=== PATIENT | female | born 1955 | race Caucasian/White ===

== ENCOUNTER 2017-01-08 20:34 | Emergency (ER) | payer OTHER ==
[~2017-01-08] VITALS: Ht 165.1 cm; Wt 109.1 kg
[2017-01-08] MEDS ORDERED: PRINIVIL20 MG PO (21:06)
[2017-01-08] MEDS ORDERED: TOPROL XL 50MG50 MG PO (21:06)
[2017-01-08] MEDS ORDERED: LIPITOR 40MG TA40 MG PO (21:06)
[2017-01-08] MEDS ORDERED: IMITREX 6M6 MG/0.5 M SQ (21:07)
[2017-01-08] MEDS ORDERED: MAXALT MLT10 MG/TAB PO (21:07)
[2017-01-08] MEDS ORDERED: VALIUM 10MG10 MG/TAB PO (21:07)
[2017-01-08 22:11] LABS: BASO % 0.4 % (0.0-2.0); EOS # 0.2 (0.0-0.7); EOS % 1.6 % (0-4.0); GRAN # 6.7 (1.4-6.5); GRAN % 67.8 % (42.2-75.2); HEMATOCRIT 37.9 % (37.0-47.0); HEMOGLOBIN 12.8 g/dl (12.5-16.0); LYMPH # 2.3 (1.2-3.4); LYMPH % 23.8 % (20.0-51.0); MEAN CELL VOLUME 88 fl (80.0-100.0); MEAN CORPUSCULAR HEMOGLOBIN 30 pg (27.0-31.0); MEAN CORPUSCULAR HGB CONC 34 g/dl (33.0-37.0); MONO # 0.6 (0.1-0.6); MONO % 5.7 % (1.7-9.3); PLATELET COUNT 225 K/mm3 (130-400); RED BLOOD COUNT 4.31 M/mm3 (4.10-5.30); REDCELL DISTRIBUTION WIDTH-CV 13.9 % (11.5-14.5); WHITE BLOOD COUNT 9.8 K/mm3 (4.8-10.8)
[2017-01-08 22:17] LABS: PROTHROMBIN TIME 11.2 SECONDS (9.7-12.8)
[2017-01-08 22:19] LABS: CALCIUM 9.1 mg/dL (8.4-10.2); CREATININE, serum 0.83 mg/dL (0.52-1.25); POTASSIUM 3.5 mmol/L (3.4-5.0)
[2017-01-08 22:53] VITALS: BP 156/107; PULSE 90
[2017-01-08] MEDS ORDERED: LOPRESSOR 550 MG/TAB PO ×2 (23:04→23:17)
[2017-01-08] MEDS ORDERED: CATAPRES 0.1MG0.1 MG PO ×2 (23:04→23:17)
== END 2017-01-08 23:18 | disposition home or self-care (01) ==
LOC: COL.ER 20:34
PROVIDERS: Emergency Medicine
DX: I10 Essential (primary) hypertension (principal); R04.0 Epistaxis

== ENCOUNTER → 2017-09-10 | Outpatient (CLI) | payer OTHER ==
[~2017-09-10] MED LIST: CATAPRES 0.1MG0.1 MG PO; IMITREX 6M6 MG/0.5 M SQ; LIPITOR 40MG TA40 MG PO; LOPRESSOR 550 MG/TAB PO; MAXALT MLT10 MG/TAB PO; PRINIVIL20 MG PO; TOPROL XL 50MG50 MG PO; VALIUM 10MG10 MG/TAB PO
== END ==
LOC: MHCPAIN 10:25
DX: G89.29 Other chronic pain (principal); M47.812 Spondylosis without myelopathy or radiculopathy, cervical region; R51 Headache; M54.81 Occipital neuralgia
CPT/HCPCS: G0463

== ENCOUNTER → 2018-08-27 | Outpatient (CLI) | payer OTHER | LOC: MC.RAD 09:33 | DX: Z12.31 Encounter for screening mammogram for malignant neoplasm of breast (principal); Z98.890 Other specified postprocedural states ==

== ENCOUNTER → 2019-02-25 | Outpatient (CLI) | payer OTHER | LOC: COL.RAD 10:00 | DX: K58.9 Irritable bowel syndrome, unspecified (principal); K76.0 Fatty (change of) liver, not elsewhere classified ==

== ENCOUNTER → 2019-03-14 | Outpatient (CLI) | payer OTHER | LOC: COL.RAD 09:43 | DX: K58.9 Irritable bowel syndrome, unspecified (principal) | CPT/HCPCS: A9537 ==

== ENCOUNTER → 2019-09-12 | Outpatient (CLI) | payer OTHER | LOC: MC.RAD 09:45 | DX: Z12.31 Encounter for screening mammogram for malignant neoplasm of breast (principal); Z90.13 Acquired absence of bilateral breasts and nipples ==

== ENCOUNTER → 2019-12-19 | Outpatient (CLI) | payer OTHER | LOC: COL.RAD 11:37 | DX: M25.522 Pain in left elbow (principal) ==

== ENCOUNTER 2020-04-26 08:09 | Observation (INO) | payer OTHER ==
[2020-04-26] VITALS (16 sets, daily range): BP systolic 119–166; BP diastolic 62–92; PULSE 74–89; TEMP 97.7–98.1
[~2020-04-26] VITALS: Ht 165.1 cm; Wt 100.0 kg
[2020-04-26 09:14] LABS: COLLECTION METHOD CLEAN CATCH
[2020-04-26] MEDS ORDERED: JARDIANCE25 PO (09:19)
[2020-04-26] MEDS ORDERED: CATAPRES0.2 MG PO (09:19)
[2020-04-26 09:20] LABS: BASO # 0.1 (0.0-0.2); BASO % 0.5 % (0.0-2.0); EOS # 0.2 (0.0-0.7); EOS % 1.6 % (0-4.0); GRAN # 9.9 (1.4-6.5); GRAN % 80.8 % (42.2-75.2); HEMATOCRIT 43.8 % (37.0-47.0); LYMPH # 1.5 (1.2-3.4); LYMPH % 12.5 % (20.0-51.0); MEAN CELL VOLUME 89 fl (80.0-100.0); MEAN CORPUSCULAR HEMOGLOBIN 31 pg (27.0-31.0); MEAN CORPUSCULAR HGB CONC 34 g/dl (33.0-37.0); MEAN PLATELET VOLUME 9.5 fl (7.4-10.4); MONO # 0.5 (0.1-0.6); PLATELET COUNT 226 K/mm3 (130-400); RED BLOOD COUNT 4.92 M/mm3 (4.10-5.30); REDCELL DISTRIBUTION WIDTH-CV 13.2 % (11.5-14.5)
[2020-04-26] MEDS ORDERED: PRIL40 PO (09:21)
[2020-04-26] MEDS ORDERED: HCTZ12.5TAB PO (09:21)
[2020-04-26] MEDS ORDERED: GLUCOPHAGE XR500 M1 PO (09:21)
[2020-04-26] MEDS ORDERED: K-DUR20 MEQ PO (09:21)
[2020-04-26] MEDS ORDERED: PHARMASSURE MA500 MG PO (09:22)
[2020-04-26 09:32] LABS: ALBUMIN 4.3 gm/dL (3.5-5.0); BILIRUBIN,TOTAL 0.6 mg/dL (0.0-1.0); C-REACTIVE PROTEIN 0.9 mg/dL (0.0-0.9); CALCIUM 9.3 mg/dL (8.4-10.2); CREATININE, serum 0.9 (0.52-1.25); POTASSIUM 3.8 mmol/L (3.4-5.0); TOTAL PROTEIN 7.3 gm/dL (6.4-8.2)
[2020-04-26 09:40] LABS: MUCOUS Present /lpf; PH 5 (5-8); SQUAMOUS EPITHELIAL 0-2 /hpf; URINE APPEARANCE Cloudy; URINE BACTERIA None Seen /hpf; URINE BILIRUBIN Negative (NEGATIVE); URINE BLOOD 3+ (NEGATIVE); URINE COLOR Yellow; URINE GLUCOSE 3+ (NEGATIVE); URINE KETONE Trace (NEGATIVE); URINE LEUKOCYTE ESTERASE Negative (NEGATIVE); URINE NITRATE Negative (NEGATIVE); URINE PROTEIN(semi-quant) Negative (NEGATIVE); URINE RBC >50 /hpf; URINE UROBILINOGEN Negative (NEGATIVE)
--- NOTE | 2020-04-26 11:56 | NUR ---
Patient to room from ER via wheelchair. Rates pain 6-8/10 in left flank, unable to describe exactly how pain feels. Oriented to room and current plan.
--- NOTE | 2020-04-26 12:23 | NUR ---
Patient educated on Dilaudid AEROSPACE TECHNICIAN, use, and potential risks of using. Verbalizes understanding and AEROSPACE TECHNICIAN connected at this time.
--- NOTE | 2020-04-26 13:20 | NUR ---
Consent reviewed with the patient. Questions answered. Patient signs consent, will place in chart. Patient says that she has used the Dilaudid CHILDBIRTH EDUCATOR a couple times and does not feel that it really helps and thinks that the pain will not get better until the stone is out. Patient is aware of procedure time. Denies any needs at this time.
--- NOTE | 2020-04-26 14:29 | NUR ---
Sitting up in bed with eyes open. Still having some pain and is ready for this procedure and is hoping that they are able to laser the stone to get it to break up. Patient has ice pack to left side as she says that it helps some with the pain. Denies additional needs at this time.
--- NOTE | 2020-04-26 17:01 | NUR ---
Patient having nausea. Administered Zofran as prescribed. Patient connected to NA via gravity tubing. Expresses she is ready to get the procedure over with so that she can start feeling better.
--- NOTE | 2020-04-26 17:26 | NUR ---
Patient to surgery via bed with surgery staff at this time.
--- NOTE | 2020-04-26 20:20 | NUR ---
Pt arrrived to the floor with nurse CARMELINA Hubbard. Pt stated that she had to urinate. Pt was assisted the the bathroom. Pt was able to void at this time. Pt urine was red tinged at this time. Pt was assisted back to bed. Pt was at the room when pt came back. Pt was a little anxious because she didn't want to go home. She was concerned about her care whenever she gets home. She didn't want her to be worried about her. Pt did leave at this time, he thought it was a good idea that she stayed. Dr. Euceda was contacted at this time. He was ok with pt staying over night. He also was ok with pt hypertension medications continued at this time due to the pt having elevated blood pressure readings. Pt has her call light within reach. Pt stated she would call when she was ready to try ice chips without nausea.
--- NOTE | 2020-04-26 23:20 | NUR ---
Pt had some complaints of pain at this time. Dr. Euceda was contacted at this time. He ordered a one time dose of Toradol 30mg and Norc 5/35 for breakthrough pain at this time. Pt was administerd the 30mg of Toradol at this time. Pt has been tolerating water and ice chips. She stated when her pain is better she is willing to try some jello. Pt currently is sitting up in bed and has her call light within reach. She was also assisted to the restroom at this time.
[2020-04-27 00:05] VITALS: BP 148/67; PULSE 73; TEMP 97.9
--- NOTE | 2020-04-27 00:10 | NUR ---
Pt stated that her pain was much better. Pt has had a cup of jello and she tolerated this well. Pt is currently eating a sandwich tray right now.
[2020-04-27 03:55] VITALS: BP 152/75; PULSE 77; TEMP 98.3
--- NOTE | 2020-04-27 04:40 | NUR ---
Pt blood glucose level was 139 this morning. Pt is currently on the moderate sliding scale and nothing was given at this time. Dr. Euceda was contacted during the shift to confirm the sliding scale for pt. Pt has her call light within reach. She was given a fresh ice pack. Pt has frequently urinated but nothing was abnormal. Pt has been tolerating fluids well. She has been independently going to the restroom by herself.
--- NOTE | 2020-04-27 07:30 | NUR ---
Patient c/o pain and nausea this morning. Administered PRN zofran and norco per order. Patient reports that she has voided this morning. Urine is bloody but clear. Patient denies further needs at this time, call light within reach.
--- NOTE | 2020-04-27 07:31 | NUR ---
Reported off to CARMEILNA Dixon. Pt has her call light within reach and her bed is in lowest position.
[2020-04-27 07:35] VITALS: BP 156/79; PULSE 71; TEMP 98.5
--- NOTE | 2020-04-27 08:30 | NUR ---
Discharge teaching completed. Discussed discharge instructions, discharge medications, discharge appointment, and reviewed education. Patient questions asked and answered. INT removed, catheter intact, hemostasis achieved. Patient dressed and escorted to ED entrance where she entered a private vehicle.
== END 2020-04-27 09:00 | disposition home or self-care (01) ==
LOC: COL.ER 08:09 → SURG 11:03
PROVIDERS: Family Medicine; ADMIT Urology
DX: N13.2 Hydronephrosis with renal and ureteral calculous obstruction (principal); Z88.6 Allergy status to analgesic agent; Z88.5 Allergy status to narcotic agent; Z79.899 Other long term (current) drug therapy; K76.0 Fatty (change of) liver, not elsewhere classified; E11.9 Type 2 diabetes mellitus without complications; Z79.84 Long term (current) use of oral hypoglycemic drugs; Z88.8 Allergy status to other drugs, medicaments and biological substances
CPT/HCPCS: C1769; C1894; C2617; G0378; J0690; J1100; J1170; J1815; J1885; J2270; J2405; J2704; J3010; J7030; J7120; Q9967

== ENCOUNTER → 2020-09-14 | Outpatient (CLI) | payer OTHER ==
[~2020-09-14] MED LIST changes: +CATAPRES0.2 MG PO; +GLUCOPHAGE XR500 M1 PO; +HCTZ12.5TAB PO; +JARDIANCE25 PO; +K-DUR20 MEQ PO; +PHARMASSURE MA500 MG PO; +PRIL40 PO
== END ==
LOC: MC.RAD 09:33
DX: Z12.31 Encounter for screening mammogram for malignant neoplasm of breast (principal)

== ENCOUNTER → 2021-10-18 | Outpatient (CLI) | payer OTHER | LOC: MC.RAD 09:03 | DX: Z12.31 Encounter for screening mammogram for malignant neoplasm of breast (principal) ==

== ENCOUNTER → 2022-12-27 | Outpatient (CLI) | payer MEDICARE, OTHER | LOC: MC.RAD 10-20 09:30 | DX: Z12.31 Encounter for screening mammogram for malignant neoplasm of breast (principal) ==